=== PATIENT | male | born 1970 | race Caucasian/White ===

== ENCOUNTER 2017-12-30 09:46 | Emergency (ER) | payer MEDICARE ==
[~2017-12-30] VITALS: Ht 190.5 cm; Wt 109.8 kg
[~2017-12-30 09:46] MED LIST: ADVAIR INH; ADVAIR PO; ALBU.083IS IH; ALBU90OI INH; ALBU90OI6 INH; ALPR1 PO; AMIO200 PO; AMIT10 PO; AMOCLA875 PO; AMOX875 PO; ANORO ELLIPTA1 EACH INH; ASPI325 PO; ASPI81CH PO; ASPI81EC PO; ATEN25 PO; Advair Hfa 230-12 GM; Amiodarone HCl200 MG PO; Amoxicillin500 MG PO; Ativan1 MG PO; BISA5EC PO; CARV25 PO; CIPR500 PO; CITA20 PO; CLON.1 PO; CODGUAEL PO; COMBIVENT INH; COMBIVENT RESPIM4 GM; CYCL10 PO; Carvedilol25 MG PO; Catapres0.1 MG PO; Celexa40 MG PO; DIAZ10 PO; DIAZ5 PO; DOCU100 PO; DOXY100 PO; Desyrel150 MG PO; ENTRESTO 24 MG1 EACH PO; FLUSAL1005 IH; FLUSAL2505 INH; FURO20 PO; HYDACE5 PO; HYDACE5325 PO; HYDCHL12.5 PO; HYDMOR2 PO; HYDR-86; HYDR1TAB94; HYDR1TAB94 PO; IBUP600 PO; LEVFLO500 PO; LISI20 PO; LORA1 PO; LORTAB 5-325 M1 EACH PO; METO50 PO; METO50ER PO; METR500 PO; Norco 5-325 Ta1 EACH PO; OMEP20ER PO; OXYACE5T PO; Omeprazole20 M1 PO; PRED20 PO; Percocet 5-3251 EACH PO; Prilosec Otc20 MG PO; RANI150 PO; ROPI2 PO; RXHYDACE PO; SENN187 PO; SUMA25 PO; TIOT18 INH; TIOT18 PO; TRAZ150T57 PO; TRAZ50 PO; Trazodone HCl300 MG; VITAMIN B12 PO; VITAMIN B122500 MC1 PO; WARF2.5 PO; WARF5 PO; XARELTO20 MG PO
[2017-12-30 10:29] LABS: BASOPHILS ABSOLUTE AUTO 0.04 K/mm3 (0.00-0.23); BASOPHILS PERCENT AUTO 1 % (0-2); EOSINOPHILS ABSOLUTE AUTO 0.05 K/mm3 (0.00-0.68); EOSINOPHILS PERCENT AUTO 1 % (0-6); Hematocrit 45.8 % (37.0-53.0); Hemoglobin 15.3 g/dL (13.5-17.5); IMMATURE GRAN ABSOLUTE AUTO 0.02 K/mm3 (0.00-0.10); IMMATURE GRAN PERCENT AUTO 0 % (0-1); LYMPHOCYTES ABSOLUTE AUTO 1.16 K/mm3 (0.84-5.20); LYMPHOCYTES PERCENT AUTO 18 % (21-46); MONOCYTES PERCENT AUTO 14 % (4-13); Mean Corpuscular HGB 32.2 pg (26.0-34.0); Mean Corpuscular HGB Conc 33.4 g/dL (31.5-36.5); Mean Corpuscular Volume 96 fL (80-100); Mean Platelet Volume 10.2 fL (9.1-12.4); NEUTROPHILS ABSOLUTE AUTO 4.35 K/mm3 (1.96-9.15); NEUTROPHILS PERCENT AUTO 67 % (41-73); Platelet Count 260 K/mm3 (150-400); RDW Coefficient Variation 15.4 % (11.7-14.2); RDW Standard Deviation 55.2 fL (35.1-46.3); Red Blood Cell Count 4.75 M/mm3 (4.30-5.90); White Blood Cell Count 6.52 K/mm3 (4.00-11.30)
[2017-12-30 10:32] LABS: Base Excess Venous 3.8 mmol/L; Bicarbonate Venous 26.5 mmol/L (24.0-30.0); PCO2 Venous 41.4 mmHg (38-42); PO2 Venous 29.8 mmHg (38-42); pH Blood Venous 7.44 (7.34-7.37)
[2017-12-30 10:42] LABS: International Normalized Ratio 1.29; Prothrombin Time Results 13.5 Sec (9.7-11.5)
[2017-12-30 10:53] LABS: Alanine Aminotransfer (ALT/SGP 123 U/L (12-78); Albumin, Blood 3.6 g/dL (3.4-5.0); Albumin/Globulin Ratio 0.8 (0.8-1.8); Alk Phos 96 U/L (50-136); Anion Gap 8 mmol/L (6-16); Aspartate Aminotrans (AST/SGOT 61 U/L (12-37); Bilirubin, Total 1.2 mg/dL (0.1-1.0); Blood Urea Nitrogen 48 mg/dL (8-24); Bun/Creatinine Ratio 23.6 (12.0-20.0); CO2, Blood 28 mmol/L (21-32); Calcium, Blood 8.9 mg/dL (8.5-10.1); Chloride, Blood 96 mmol/L (98-108); Creatinine, Blood 2.03 mg/dL (0.60-1.20); Globulin, Blood 4.8 g/dL (2.2-4.0); Glomerular Filtration Rate 37 (60-); Glucose, Blood 111 mg/dL (70-99); Magnesium, Blood 2.2 mg/dL (1.6-2.4); Potassium, Blood 4.2 mmol/L (3.5-5.5); Sodium, Blood 132 mmol/L (136-145); Total Protein, Blood 8.4 g/dL (6.4-8.2); Troponin I <0.015 ng/mL (0.000-0.040)
[2018-06-17] MEDS ORDERED: QUET100 PO (03:37)
[2018-06-17] MEDS ORDERED: CLON1 PO (10:09)
[2018-09-28] MEDS ORDERED: CARV25 PO (23:30)
[2018-09-28] MEDS ORDERED: Ranitidine HCl150 M1 PO (23:30)
[2018-09-28] MEDS ORDERED: ROPI2 PO (23:30)
[2018-09-28] MEDS ORDERED: ENTRESTO 24 MG1 EACH PO (23:31)
[2018-09-28] MEDS ORDERED: Citalopram HBr40 MG PO (23:31)
[2018-09-28] MEDS ORDERED: Bentyl20 MG (23:31)
[2018-09-28] MEDS ORDERED: XARELTO20 MG PO (23:32)
[2018-09-28] MEDS ORDERED: GABA300 PO (23:32)
[2018-09-28] MEDS ORDERED: NALTREXONE PO (23:32)
[2018-09-28] MEDS ORDERED: QUET25 PO (23:33)
[2018-09-28] MEDS ORDERED: FURO20 PO (23:33)
[2018-09-28] MEDS ORDERED: TRAZ150T57 PO (23:33)
[2018-09-28] MEDS ORDERED: CLON1 PO (23:33)
[2018-09-29] MEDS ORDERED: PROM12.5S PR (00:22)
== END 2017-12-30 14:18 | disposition left against medical advice (07) ==
LOC: ER 09:46 → MEDS 09:47 → ER 09:47 → MEDS 09:47 → ER 14:18
PROVIDERS: Emergency Medicine
DX: R55 Syncope and collapse (principal); N17.9 Acute kidney failure, unspecified; E86.0 Dehydration; K92.1 Melena; Z88.5 Allergy status to narcotic agent; Z88.8 Allergy status to other drugs, medicaments and biological substances; Z79.899 Other long term (current) drug therapy; Z79.891 Long term (current) use of opiate analgesic; J44.9 Chronic obstructive pulmonary disease, unspecified; F41.9 Anxiety disorder, unspecified; I48.91 Unspecified atrial fibrillation; I50.9 Heart failure, unspecified; Z87.891 Personal history of nicotine dependence
CPT/HCPCS: 36415; 80053; 82272; 82803; 83735; 84443; 84484; 85025; 85610; 93005; 93010; 96360; 96361; 99284; J7030

== ENCOUNTER → 2018-07-09 | Outpatient (CLI) | payer MEDICARE ==
[~2018-07-09] MED LIST changes: +CLON1 PO; +QUET100 PO
[2018-07-09 14:38] LABS: Adenovirus F 40/41 Not Detected (NOT DETECT); Astrovirus Not Detected (NOT DETECT); Campylobacter Sp Not Detected (NOT DETECT); Cryptosporidium Not Detected (NOT DETECT); Cyclospora Cayetanensis Not Detected (NOT DETECT); E. Coli O157 Not Detected (NOT DETECT); Entamoeba Histolytica Not Detected (NOT DETECT); Enteroaggregative E. coli-EAEC Not Detected (NOT DETECT); Enteropathogenic E. coli-EPEC Not Detected (NOT DETECT); Enterotoxigenic E. coli-ETEC Not Detected (NOT DETECT); Giardia Lamblia Not Detected (NOT DETECT); Norovirus GI/GII Not Detected (NOT DETECT); Plesiomonas Shigelloides Not Detected (NOT DETECT); Rotavirus A Not Detected (NOT DETECT); Salmonella Sp Not Detected (NOT DETECT); Sapovirus Not Detected (NOT DETECT); Shiga Toxin-prod E. coli-STEC Not Detected (NOT DETECT); Shigella/Enteroin E. coli-EIEC Not Detected (NOT DETECT); Vibrio Cholerae Not Detected (NOT DETECT); Vibrio Sp Not Detected (NOT DETECT); Yersinia Enterocolitica Not Detected (NOT DETECT)
== END ==
LOC: LAB SHORT 14:37 → LAB SRC 14:37
PROVIDERS: Internal Medicine Gastroenterology
DX: K92.1 Melena (principal); R19.7 Diarrhea, unspecified
CPT/HCPCS: 87507

== ENCOUNTER 2018-12-24 16:06 | Emergency (ER) | payer MEDICARE ==
[~2018-12-24] VITALS: Ht 193 cm; Wt 117.9 kg
[~2018-12-24 16:06] MED LIST changes: +Bentyl20 MG; +Citalopram HBr40 MG PO; +GABA300 PO; +NALTREXONE PO; +PROM12.5S PR; +QUET25 PO; +Ranitidine HCl150 M1 PO
[2018-12-24 16:59] LABS: BASOPHILS ABSOLUTE AUTO 0.06 K/mm3 (0.00-0.23); BASOPHILS PERCENT AUTO 0 % (0-2); EOSINOPHILS ABSOLUTE AUTO 0.08 K/mm3 (0.00-0.68); EOSINOPHILS PERCENT AUTO 1 % (0-6); Hematocrit 43.9 % (37.0-53.0); Hemoglobin 14.2 g/dL (13.5-17.5); IMMATURE GRAN ABSOLUTE AUTO 0.04 K/mm3 (0.00-0.10); IMMATURE GRAN PERCENT AUTO 0 % (0-1); LYMPHOCYTES ABSOLUTE AUTO 1.41 K/mm3 (0.84-5.20); LYMPHOCYTES PERCENT AUTO 10 % (21-46); MONOCYTES ABSOLUTE AUTO 1.19 K/mm3 (0.16-1.47); MONOCYTES PERCENT AUTO 9 % (4-13); Mean Corpuscular HGB 27.6 pg (26.0-34.0); Mean Corpuscular HGB Conc 32.3 g/dL (31.5-36.5); Mean Corpuscular Volume 85 fL (80-100); Mean Platelet Volume 10.2 fL (9.1-12.4); NEUTROPHILS ABSOLUTE AUTO 10.87 K/mm3 (1.96-9.15); NEUTROPHILS PERCENT AUTO 80 % (41-73); Platelet Count 296 K/mm3 (150-400); RDW Standard Deviation 50.8 fL (35.1-46.3); Red Blood Cell Count 5.14 M/mm3 (4.30-5.90); White Blood Cell Count 13.65 K/mm3 (4.00-11.30)
[2018-12-24 17:20] LABS: Alanine Aminotransfer (ALT/SGP 24 U/L (12-78); Albumin, Blood 4.1 g/dL (3.4-5.0); Albumin/Globulin Ratio 1.1 (0.8-1.8); Alk Phos 85 U/L (50-136); Anion Gap 11 mmol/L (6-16); Aspartate Aminotrans (AST/SGOT 20 U/L (12-37); Blood Urea Nitrogen 12 mg/dL (8-24); Bun/Creatinine Ratio 11.9 (12.0-20.0); CO2, Blood 22 mmol/L (21-32); Calcium, Blood 9.1 mg/dL (8.5-10.1); Chloride, Blood 104 mmol/L (98-108); Creatinine, Blood 1.01 mg/dL (0.60-1.20); Globulin, Blood 3.9 g/dL (2.2-4.0); Glomerular Filtration Rate >60 (60-); Glucose, Blood 103 mg/dL (70-99); Sodium, Blood 137 mmol/L (136-145)
[2018-12-24 18:02] LABS: Source, Urine Voided
[2018-12-24 18:05] LABS: Appearance, Urine Clear (Clear); Bilirubin, Urine Neg (Neg); Blood, Urine 1+ (Neg); Color, Urine Yellow (P-Yellow); Glucose Qualitative, Urine Neg (Neg); Ketones, Urine 3+ (Neg); Leukocyte Esterase, Urine Neg (Neg); Nitrite, Urine Neg (Neg); Protein, Urine 2+ (Neg); Specific Gravity, Urine 1.015 (1.003-1.022); Urobilinogen, Urine NORM (Normal)
[2018-12-24] MEDS ORDERED: PROM25 PO (18:13)
[2018-12-24] MEDS ORDERED: CITRATE OF MAG296 ML PO (18:13)
[2018-12-24 18:21] LABS: Bacteria Not Seen /hpf; Red Blood Cells, Urine 0-2 /hpf (0-2); Squamous Epithelial Cells Rare /hpf (Few); White Blood Cells, Urine 0-2 /hpf (0-5)
[2018-12-24] MEDS ORDERED: HALO5 PO (18:56)
[2018-12-24] MEDS ORDERED: Capzasin-Hp42.5 GM TOP (18:56)
== END 2018-12-24 19:11 | disposition home or self-care (01) ==
LOC: ER 16:06
PROVIDERS: Emergency Medicine
DX: K59.00 Constipation, unspecified (principal); R11.2 Nausea with vomiting, unspecified; J44.9 Chronic obstructive pulmonary disease, unspecified; F41.9 Anxiety disorder, unspecified; I50.9 Heart failure, unspecified; F17.200 Nicotine dependence, unspecified, uncomplicated; Z88.8 Allergy status to other drugs, medicaments and biological substances; Z88.5 Allergy status to narcotic agent; Z79.899 Other long term (current) drug therapy
CPT/HCPCS: 36415; 74176; 80053; 81001; 83690; 85025; 96361; 96374; 96375; 99284-25; J1630; J2060; J2405; J7030

== ENCOUNTER 2019-01-25 17:19 | Emergency (ER) | payer MEDICARE ==
[~2019-01-25] VITALS: Ht 193 cm; Wt 108.9 kg
[~2019-01-25 17:19] MED LIST changes: +CITRATE OF MAG296 ML PO; +Capzasin-Hp42.5 GM TOP; +HALO5 PO; +PROM25 PO
[2019-01-25 18:16] LABS: BASOPHILS ABSOLUTE AUTO 0.04 K/mm3 (0.00-0.23); BASOPHILS PERCENT AUTO 0 % (0-2); EOSINOPHILS ABSOLUTE AUTO 0.07 K/mm3 (0.00-0.68); EOSINOPHILS PERCENT AUTO 1 % (0-6); Hematocrit 46.4 % (37.0-53.0); Hemoglobin 14.9 g/dL (13.5-17.5); IMMATURE GRAN ABSOLUTE AUTO 0.04 K/mm3 (0.00-0.10); IMMATURE GRAN PERCENT AUTO 0 % (0-1); LYMPHOCYTES ABSOLUTE AUTO 1.24 K/mm3 (0.84-5.20); LYMPHOCYTES PERCENT AUTO 13 % (21-46); MONOCYTES ABSOLUTE AUTO 0.88 K/mm3 (0.16-1.47); MONOCYTES PERCENT AUTO 9 % (4-13); Mean Corpuscular HGB 27.7 pg (26.0-34.0); Mean Corpuscular HGB Conc 32.1 g/dL (31.5-36.5); Mean Corpuscular Volume 86 fL (80-100); NEUTROPHILS ABSOLUTE AUTO 7.51 K/mm3 (1.96-9.15); NEUTROPHILS PERCENT AUTO 77 % (41-73); Platelet Count 316 K/mm3 (150-400); RDW Coefficient Variation 18.7 % (11.7-14.2); RDW Standard Deviation 56.8 fL (35.1-46.3); Red Blood Cell Count 5.37 M/mm3 (4.30-5.90); White Blood Cell Count 9.78 K/mm3 (4.00-11.30)
[2019-01-25 18:44] LABS: Alanine Aminotransfer (ALT/SGP 20 U/L (12-78); Albumin, Blood 4.2 g/dL (3.4-5.0); Alk Phos 99 U/L (50-136); Anion Gap 8 mmol/L (6-16); Aspartate Aminotrans (AST/SGOT 12 U/L (12-37); Bilirubin, Total 0.8 mg/dL (0.1-1.0); Blood Urea Nitrogen 11 mg/dL (8-24); Bun/Creatinine Ratio 11.9 (12.0-20.0); CO2, Blood 28 mmol/L (21-32); Calcium, Blood 9.5 mg/dL (8.5-10.1); Chloride, Blood 103 mmol/L (98-108); Creatinine, Blood 0.93 mg/dL (0.60-1.20); Globulin, Blood 4.2 g/dL (2.2-4.0); Glomerular Filtration Rate >60 (60-); Glucose, Blood 119 mg/dL (70-99); Potassium, Blood 3.9 mmol/L (3.5-5.5); Sodium, Blood 139 mmol/L (136-145); Total Protein, Blood 8.4 g/dL (6.4-8.2); Troponin I <0.015 ng/mL (0.000-0.040)
== END 2019-01-25 19:20 | disposition left against medical advice (07) ==
LOC: ER 17:19
PROVIDERS: Physician Assistant
DX: R11.2 Nausea with vomiting, unspecified (principal); R00.2 Palpitations; R06.02 Shortness of breath; R07.9 Chest pain, unspecified
CPT/HCPCS: 36415; 71046; 80053; 83880; 84443; 84484; 85025; 93005; 93010; 96374; 99284-25; J2405

== ENCOUNTER 2019-02-20 10:33 | Inpatient (IN) | payer MEDICARE ==
[~2019-02-20] VITALS: Ht 185.4 cm; Wt 104.7 kg
[2019-02-20 11:00] LABS: BASOPHILS ABSOLUTE AUTO 0.06 K/mm3 (0.00-0.23); BASOPHILS PERCENT AUTO 1 % (0-2); EOSINOPHILS ABSOLUTE AUTO 0.24 K/mm3 (0.00-0.68); EOSINOPHILS PERCENT AUTO 2 % (0-6); Hematocrit 46.7 % (37.0-53.0); Hemoglobin 14.6 g/dL (13.5-17.5); IMMATURE GRAN ABSOLUTE AUTO 0.04 K/mm3 (0.00-0.10); IMMATURE GRAN PERCENT AUTO 0 % (0-1); LYMPHOCYTES ABSOLUTE AUTO 2.53 K/mm3 (0.84-5.20); LYMPHOCYTES PERCENT AUTO 24 % (21-46); MONOCYTES ABSOLUTE AUTO 1.24 K/mm3 (0.16-1.47); MONOCYTES PERCENT AUTO 12 % (4-13); Mean Corpuscular HGB 27.9 pg (26.0-34.0); Mean Corpuscular HGB Conc 31.3 g/dL (31.5-36.5); Mean Corpuscular Volume 89 fL (80-100); Mean Platelet Volume 11.2 fL (9.1-12.4); NEUTROPHILS ABSOLUTE AUTO 6.59 K/mm3 (1.96-9.15); NEUTROPHILS PERCENT AUTO 62 % (41-73); Platelet Count 305 K/mm3 (150-400); RDW Coefficient Variation 18.7 % (11.7-14.2); RDW Standard Deviation 59.5 fL (35.1-46.3); Red Blood Cell Count 5.24 M/mm3 (4.30-5.90)
[2019-02-20 11:14] LABS: Alanine Aminotransfer (ALT/SGP 19 U/L (12-78); Albumin, Blood 3.9 g/dL (3.4-5.0); Alk Phos 77 U/L (50-136); Anion Gap 6 mmol/L (6-16); Aspartate Aminotrans (AST/SGOT 22 U/L (12-37); Bilirubin, Total 0.8 mg/dL (0.1-1.0); Blood Urea Nitrogen 13 mg/dL (8-24); Bun/Creatinine Ratio 11.7 (12.0-20.0); CO2, Blood 27 mmol/L (21-32); Chloride, Blood 108 mmol/L (98-108); Creatinine, Blood 1.11 mg/dL (0.60-1.20); Glomerular Filtration Rate >60 (60-); Glucose, Blood 115 mg/dL (70-99); Sodium, Blood 141 mmol/L (136-145); Total Protein, Blood 7.9 g/dL (6.4-8.2)
[2019-02-20] MEDS ORDERED: CITA20 PO (16:13)
[2019-02-20] MEDS ORDERED: ABAT250V (16:13)
[2019-02-20] MEDS ORDERED: COMBIVENT RESPIM4 GM INH (16:15)
--- NOTE | 2019-02-20 16:30 | NUR ---
pt arrived to pcu via gurney from ed, report was given, pt able to stand and transfer himself to bed. a/ox3, pleasant and cooperative with care, follows commands well, states it really hurts to vomit but chest is not hurting at this time. was reluctant to have prabhjot miranda hooked back up because he percieved that it was causing his chest pain, explained to him that it is very unlikely, and since he is pain free at this time to start it back up and if his chest pain starts shortly after will keep it off, hooked him up with no pain, lungs are clear in upper red, course in bases, resp even and unlabored, no cough noted, is currently on r/a, resp even and unlabored, hrirr, tele in place running afib in 120's, iv to left ac, site is clear and patent, new iv placed to left fa 20g, with good blood return, flushes well, no edema noted, ppp+2, cap refill <3sec, vs stable, afebrile, btx4, abd flat soft nontender, voids without diff, skin c/w/d, haile, david, oriented to room layout and call system. call light in reach.
--- NOTE | 2019-02-20 19:22 | NUR ---
pt vomiting. po phenergan given when he was finished, states it hurts to vomit. is laying on his side resting now. call light in reach.
--- NOTE | 2019-02-20 22:07 | NUR ---
ASSUMED CARE OF PATIENT AT APPROXIMATELY 1910 FROM FREDERICK Talavera RN. PATIENT COMPLAINS OF PAIN; REPORTS NEEDS IV PAIN MEDICATION. PATIENT ANXIOUS; MOVING FROM LAYING DOWN TO SITTING UP IN BED; REFUSING TO TAKE SCHEDULED PO MEDICATIONS; STATING NEEDS PAIN MEDICATION FIRST; NO IV PAIN MEDICATION ORDERED. PATIENT REPORTS PAIN IS 5-6/10; K-PAD IN [place]; PATIENT REPORTS DIFFERENT FROM HIS CHRONIC ABDOMINAL PAIN BECAUSE HE DOESNT NORMALLY VOMIT; PATIENT HAS NOT VOMITED SINCE SHIFT CHANGE. PATIENT STATED "I TOLD THEM I NEED VERSED NOT FENTANYL" BUT LATER REPORTS FENTANYL HELPS PAIN. CALLED PLACED TO EVELYN MOSHER; ORDERS RECIEVED FOR ONE TIME DOSE OF FENTANYL; GOOD RESULTS; PATIENT HAD SMILE ON HIS FACE. EVELYN MOSHER ALSO NOTIFIED OF ELEVATED BLOOD PRESSURE; PATIENT REPORTS HIGH D/T PAIN; PATIENT NOT STAYING STILL FOR BLOOD PRESSURE; SITTING UP IN BED AND LAYING BACK DOWN; PUTTING PRESSURE ON HIS ARM WHILE BLOOD PRESSURE CUFF INFLATES AND DEFLATED. AFIB ON TELE W/ AVERAGE RATE OF 105; CARDIZEM INFUSING AT 10ML/HR; LR INFUSING INTO 2ND PIV PER ORDER. PATIENT REPORTS HE DOESNT HAVE NUMBNESS AND TINGLING "RIGHT NOW". PATIENT DENIES NAUSEA; DRINKING APPLE JUICE AND TOLERATING WELL; TOOK PILLS WHOLE. OXYGEN SATURATION ABOVE 90% ON ROOM AIR. PATIENT REPORTS HE HAS NOT SLEPT IN FOUR DAYS. PATIENT CURRENTLY RESTING IN BED; CALL LIGHT IN REACH; BED IN LOWEST POSISTION; BED ALARM ON; WILL CONTINUE TO MONITOR AND ASSESS UNTIL END OF SHIFT.
--- NOTE | 2019-02-20 23:32 | NUR ---
CARDIZEM STOPPED; AFIB ON TELE; HEART RATE 85 AND CONTINUE TO TREND DOWN; SBP IN THE 90'S.
[2019-02-21 03:56] LABS: BASOPHILS ABSOLUTE AUTO 0.02 K/mm3 (0.00-0.23); BASOPHILS PERCENT AUTO 0 % (0-2); EOSINOPHILS ABSOLUTE AUTO 0.08 K/mm3 (0.00-0.68); EOSINOPHILS PERCENT AUTO 1 % (0-6); Hematocrit 43.2 % (37.0-53.0); Hemoglobin 13.7 g/dL (13.5-17.5); IMMATURE GRAN ABSOLUTE AUTO 0.01 K/mm3 (0.00-0.10); IMMATURE GRAN PERCENT AUTO 0 % (0-1); LYMPHOCYTES ABSOLUTE AUTO 2.17 K/mm3 (0.84-5.20); LYMPHOCYTES PERCENT AUTO 33 % (21-46); MONOCYTES ABSOLUTE AUTO 0.97 K/mm3 (0.16-1.47); MONOCYTES PERCENT AUTO 15 % (4-13); Mean Corpuscular HGB 28.3 pg (26.0-34.0); Mean Corpuscular HGB Conc 31.7 g/dL (31.5-36.5); Mean Corpuscular Volume 89 fL (80-100); Mean Platelet Volume 10.5 fL (9.1-12.4); NEUTROPHILS ABSOLUTE AUTO 3.37 K/mm3 (1.96-9.15); NEUTROPHILS PERCENT AUTO 51 % (41-73); Platelet Count 247 K/mm3 (150-400); RDW Coefficient Variation 18.5 % (11.7-14.2); RDW Standard Deviation 59.3 fL (35.1-46.3); Red Blood Cell Count 4.84 M/mm3 (4.30-5.90); White Blood Cell Count 6.62 K/mm3 (4.00-11.30)
[2019-02-21 04:27] LABS: Alanine Aminotransfer (ALT/SGP 20 U/L (12-78); Albumin, Blood 3.5 g/dL (3.4-5.0); Alk Phos 66 U/L (50-136); Anion Gap 6 mmol/L (6-16); Aspartate Aminotrans (AST/SGOT 14 U/L (12-37); Bilirubin, Total 0.8 mg/dL (0.1-1.0); Blood Urea Nitrogen 13 mg/dL (8-24); Bun/Creatinine Ratio 12.9 (12.0-20.0); CO2, Blood 29 mmol/L (21-32); Calcium, Blood 8.6 mg/dL (8.5-10.1); Chloride, Blood 108 mmol/L (98-108); Creatinine, Blood 1.01 mg/dL (0.60-1.20); Globulin, Blood 3.6 g/dL (2.2-4.0); Glomerular Filtration Rate >60 (60-); Glucose, Blood 87 mg/dL (70-99); Magnesium, Blood 2.6 mg/dL (1.6-2.4); Potassium, Blood 3.8 mmol/L (3.5-5.5); Sodium, Blood 143 mmol/L (136-145); Total Protein, Blood 7.1 g/dL (6.4-8.2)
--- NOTE | 2019-02-21 07:11 | NUR ---
PATIENT SLEPT ABOUT SEVEN HOURS LAST NIGHT. VSS. NO OTHER ACUTE CHANGES TO REPORT.
--- NOTE | 2019-02-21 11:23 | NUR ---
BEGINNING OF SHIFT Assumed care at 0700. Report recieved from Cheyenne CARPIO. Pt on room air. Independent in room. During shift assessment, pt states his abdominal pain has resolved. He did not have reoccurence of pain after eating a clear liquid breakfast. Pt denies nausea and vomiting as well. Pt states desire to go home. Call placed to Dr Wyatt regarding pt's improved heart rate and discontinuation of cardizem during previous shift. No new orders given. Dr Wyatt in to see pt soon afterwards. Plans for potential discharge today if pt's heart rate remains controlled.
[2019-02-21] MEDS ORDERED: OMEPRAZOLE MAGN20 MG PO (13:55)
[2019-02-21] MEDS ORDERED: ONDA4ODT PO (13:56)
--- NOTE | 2019-02-21 14:16 | NUR ---
DISCHARGE Pt discharged from unit at 1416. Pt escorted to vehicle via wheelchair with one visitor and Love MALIK. Medications faxed to pt's pharmacy, which is not open on Sundays. Staff recommended pt picks up medications from a pharmacy that is open today; pt declined.
== END 2019-02-21 14:12 | disposition home or self-care (01) | DRG 392 ==
LOC: ER 10:33 → PCU 14:10
PROVIDERS: Emergency Medicine; ADMIT Internal Medicine
DX: K52.9 Noninfective gastroenteritis and colitis, unspecified (principal); I42.6 Alcoholic cardiomyopathy; I48.92 Unspecified atrial flutter; I48.2 Chronic atrial fibrillation; J43.9 Emphysema, unspecified; F41.9 Anxiety disorder, unspecified; I10 Essential (primary) hypertension; K21.9 Gastro-esophageal reflux disease without esophagitis; G25.81 Restless legs syndrome; E86.0 Dehydration; I16.0 Hypertensive urgency; G40.909 Epilepsy, unspecified, not intractable, without status epilepticus; G47.30 Sleep apnea, unspecified
CPT/HCPCS: 36415; 71045; 80053; 83690; 83735; 84484; 85025; 93005; 93010; 94762; 96365; 96375; 96376; 99285-25; J2405; J2550; J3010; J3475; J7120

== ENCOUNTER 2019-05-12 06:21 | Emergency (ER) | payer MEDICARE, OTHER ==
[~2019-05-12] VITALS: Ht 190.5 cm; Wt 120.2 kg
[~2019-05-12 06:21] MED LIST changes: +ABAT250V; +COMBIVENT RESPIM4 GM INH; +OMEPRAZOLE MAGN20 MG PO; +ONDA4ODT PO
[2019-05-12] MEDS ORDERED: Silvadene20 GM TOP (06:47)
== END 2019-05-12 07:05 | disposition home or self-care (01) ==
LOC: ER 06:21
DX: T24.012A Burn of unspecified degree of left thigh, initial encounter (principal); T22.012A Burn of unspecified degree of left forearm, initial encounter; T31.0 Burns involving less than 10% of body surface; X19.XXXA Contact with other heat and hot substances, initial encounter; Z88.5 Allergy status to narcotic agent; Z88.8 Allergy status to other drugs, medicaments and biological substances; Z79.899 Other long term (current) drug therapy; F41.9 Anxiety disorder, unspecified; J44.9 Chronic obstructive pulmonary disease, unspecified; I48.91 Unspecified atrial fibrillation; I50.9 Heart failure, unspecified; Z87.891 Personal history of nicotine dependence
CPT/HCPCS: 16025; 99283-25

== ENCOUNTER 2019-05-23 17:59 | Emergency (ER) | payer MEDICARE, OTHER ==
[~2019-05-23] VITALS: Ht 190.5 cm; Wt 108.9 kg
[~2019-05-23 17:59] MED LIST changes: +Silvadene20 GM TOP
[2019-05-23 20:18] LABS: BASOPHILS ABSOLUTE AUTO 0.05 K/mm3 (0.00-0.23); BASOPHILS PERCENT AUTO 1 % (0-2); EOSINOPHILS ABSOLUTE AUTO 0.23 K/mm3 (0.00-0.68); EOSINOPHILS PERCENT AUTO 4 % (0-6); Hematocrit 38.8 % (37.0-53.0); Hemoglobin 12.2 g/dL (13.5-17.5); IMMATURE GRAN ABSOLUTE AUTO 0.01 K/mm3 (0.00-0.10); IMMATURE GRAN PERCENT AUTO 0 % (0-1); LYMPHOCYTES ABSOLUTE AUTO 1.65 K/mm3 (0.84-5.20); LYMPHOCYTES PERCENT AUTO 26 % (21-46); MONOCYTES ABSOLUTE AUTO 0.61 K/mm3 (0.16-1.47); MONOCYTES PERCENT AUTO 10 % (4-13); Mean Corpuscular HGB 29.8 pg (26.0-34.0); Mean Corpuscular HGB Conc 31.4 g/dL (31.5-36.5); Mean Corpuscular Volume 95 fL (80-100); Mean Platelet Volume 10.9 fL (9.1-12.4); NEUTROPHILS ABSOLUTE AUTO 3.75 K/mm3 (1.96-9.15); NEUTROPHILS PERCENT AUTO 59 % (41-73); Platelet Count 243 K/mm3 (150-400); RDW Coefficient Variation 15.9 % (11.7-14.2); RDW Standard Deviation 55.1 fL (35.1-46.3)
[2019-05-23] MEDS ORDERED: Percocet 5-3251 EACH PO (20:32)
[2019-05-23 20:39] LABS: Alanine Aminotransfer (ALT/SGP 17 U/L (12-78); Albumin, Blood 3.4 g/dL (3.4-5.0); Albumin/Globulin Ratio 1.1 (0.8-1.8); Alk Phos 89 U/L (50-136); Anion Gap 5 mmol/L (6-16); Aspartate Aminotrans (AST/SGOT 20 U/L (12-37); Bilirubin, Total 0.5 mg/dL (0.1-1.0); Blood Urea Nitrogen 20 mg/dL (8-24); Bun/Creatinine Ratio 19.4 (12.0-20.0); CO2, Blood 28 mmol/L (21-32); Chloride, Blood 110 mmol/L (98-108); Creatinine, Blood 1.03 mg/dL (0.60-1.20); Glomerular Filtration Rate >60 (60-); Glucose, Blood 94 mg/dL (70-99); Potassium, Blood 3.6 mmol/L (3.5-5.5); Sodium, Blood 143 mmol/L (136-145); Total Protein, Blood 6.4 g/dL (6.4-8.2)
== END 2019-05-23 20:58 | disposition home or self-care (01) ==
LOC: ER 17:59
PROVIDERS: Physician Assistant
DX: T21.06XA Burn of unspecified degree of male genital region, initial encounter (principal); T24.092A Burn of unspecified degree of multiple sites of left lower limb, except ankle and foot, initial encounter; T24.091A Burn of unspecified degree of multiple sites of right lower limb, except ankle and foot, initial encounter; T26.42XA Burn of left eye and adnexa, part unspecified, initial encounter; T26.41XA Burn of right eye and adnexa, part unspecified, initial encounter; T31.0 Burns involving less than 10% of body surface; X14.1XXA Other contact with hot air and other hot gases, initial encounter; Z88.8 Allergy status to other drugs, medicaments and biological substances; Z88.5 Allergy status to narcotic agent; Z79.899 Other long term (current) drug therapy; J44.9 Chronic obstructive pulmonary disease, unspecified; F41.9 Anxiety disorder, unspecified; I48.91 Unspecified atrial fibrillation; I50.9 Heart failure, unspecified; Z87.891 Personal history of nicotine dependence
CPT/HCPCS: 16025; 80053; 85025; 96374-59; 99283-25; A9270; J1170

== ENCOUNTER 2019-06-02 13:15 | Emergency (ER) | payer MEDICARE, OTHER ==
[~2019-06-02] VITALS: Ht 190.5 cm; Wt 104.3 kg
[2019-06-02] MEDS ORDERED: Percocet 5-3251 EACH PO (15:09)
[2019-06-02] MEDS ORDERED: Mupirocin22 GM TOP (15:10)
== END 2019-06-02 15:54 | disposition home or self-care (01) ==
LOC: ER 13:15
DX: M79.651 Pain in right thigh (principal); M79.605 Pain in left leg; M79.602 Pain in left arm; R10.30 Lower abdominal pain, unspecified; Z88.8 Allergy status to other drugs, medicaments and biological substances; Z88.5 Allergy status to narcotic agent; Z79.899 Other long term (current) drug therapy; J44.9 Chronic obstructive pulmonary disease, unspecified; F41.9 Anxiety disorder, unspecified; I50.9 Heart failure, unspecified; Z87.891 Personal history of nicotine dependence
CPT/HCPCS: 99282; A9270-GY

== ENCOUNTER 2019-07-14 07:39 | Observation (INO) | payer MEDICARE, OTHER ==
[~2019-07-14] VITALS: Ht 193 cm; Wt 97.0 kg
[~2019-07-14 07:39] MED LIST changes: +Mupirocin22 GM TOP
[2019-07-14 08:03] LABS: BASOPHILS ABSOLUTE AUTO 0.02 K/mm3 (0.00-0.23); BASOPHILS PERCENT AUTO 0 % (0-2); EOSINOPHILS PERCENT AUTO 0 % (0-6); Hematocrit 49.3 % (37.0-53.0); Hemoglobin 16.8 g/dL (13.5-17.5); IMMATURE GRAN ABSOLUTE AUTO 0.02 K/mm3 (0.00-0.10); IMMATURE GRAN PERCENT AUTO 0 % (0-1); LYMPHOCYTES ABSOLUTE AUTO 1.22 K/mm3 (0.84-5.20); LYMPHOCYTES PERCENT AUTO 14 % (21-46); MONOCYTES ABSOLUTE AUTO 0.43 K/mm3 (0.16-1.47); MONOCYTES PERCENT AUTO 5 % (4-13); Mean Corpuscular HGB 29.9 pg (26.0-34.0); Mean Corpuscular HGB Conc 34.1 g/dL (31.5-36.5); Mean Corpuscular Volume 88 fL (80-100); Mean Platelet Volume 10.7 fL (9.1-12.4); NEUTROPHILS PERCENT AUTO 81 % (41-73); Platelet Count 276 K/mm3 (150-400); RDW Standard Deviation 51.7 fL (35.1-46.3); Red Blood Cell Count 5.62 M/mm3 (4.30-5.90); White Blood Cell Count 8.99 K/mm3 (4.00-11.30)
[2019-07-14 08:23] LABS: Alanine Aminotransfer (ALT/SGP 19 U/L (12-78); Albumin, Blood 4.3 g/dL (3.4-5.0); Alk Phos 108 U/L (50-136); Anion Gap 11 mmol/L (6-16); Aspartate Aminotrans (AST/SGOT 13 U/L (12-37); Bilirubin, Total 1.3 mg/dL (0.1-1.0); Blood Urea Nitrogen 20 mg/dL (8-24); Bun/Creatinine Ratio 23.3 (12.0-20.0); CO2, Blood 24 mmol/L (21-32); Calcium, Blood 9.2 mg/dL (8.5-10.1); Chloride, Blood 102 mmol/L (98-108); Creatinine, Blood 0.86 mg/dL (0.60-1.20); Globulin, Blood 4.2 g/dL (2.2-4.0); Glomerular Filtration Rate >60 (60-); Glucose, Blood 135 mg/dL (70-99); Potassium, Blood 4.2 mmol/L (3.5-5.5); Sodium, Blood 137 mmol/L (136-145); Total Protein, Blood 8.5 g/dL (6.4-8.2); Troponin I <0.015 ng/mL (0.000-0.040)
[2019-07-14] MEDS ORDERED: TRAZ150T57 PO (11:51)
[2019-07-14] MEDS ORDERED: CARV25 PO (11:51)
[2019-07-14] MEDS ORDERED: QUETIAPINE FUMA50 MG PO (11:52)
[2019-07-14] MEDS ORDERED: METO50ER PO (11:53)
[2019-07-14] MEDS ORDERED: FUROSEMIDE20 MG PO (11:53)
[2019-07-14] MEDS ORDERED: Ropinirole HCl2 MG PO (11:54)
[2019-07-14] MEDS ORDERED: OMEP20ER PO (11:55)
[2019-07-14 12:08] LABS: U Amphetamine Screen Not Detected; U Barbituate Screen Not Detected; U Benzodiazapine Screen Not Detected; U Buprenorphine Screen Not Detected; U Cannabinoids Screen DETECTED; U Cocaine Screen Not Detected; U Methadone Screen Not Detected; U Methamphetamine Screen Not Detected; U Opiates Screen DETECTED; U Oxycodone Screen Not Detected; U Phencyclidine Screen Not Detected; U Propoxyphene Screen Not Detected
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
[2019-07-15 00:46] LABS: Hematocrit 46.2 % (37.0-53.0); Mean Corpuscular HGB Conc 32.5 g/dL (31.5-36.5); Mean Platelet Volume 10.3 fL (9.1-12.4); Platelet Count 215 K/mm3 (150-400); RDW Coefficient Variation 16.6 % (11.7-14.2); White Blood Cell Count 7.31 K/mm3 (4.00-11.30)
[2019-07-15 00:50] LABS: Mean Corpuscular Volume 92 fL (80-100)
[2019-07-15 01:05] LABS: Anion Gap 6 mmol/L (6-16); Blood Urea Nitrogen 20 mg/dL (8-24); Bun/Creatinine Ratio 22.7 (12.0-20.0); CO2, Blood 29 mmol/L (21-32); Calcium, Blood 8.5 mg/dL (8.5-10.1); Chloride, Blood 107 mmol/L (98-108); Creatinine, Blood 0.88 mg/dL (0.60-1.20); Glomerular Filtration Rate >60 (60-); Glucose, Blood 85 mg/dL (70-99); Potassium, Blood 3.9 mmol/L (3.5-5.5); Sodium, Blood 142 mmol/L (136-145)
--- NOTE | 2019-07-15 07:39 | NUR ---
PATIENT REFUSED BLOOD SUGAR, SAID THAT HE IS NOT DIABETIC
--- NOTE | 2019-07-15 07:53 | NUR ---
pt laying in bed awake a/ox3, pleasant and cooperative with care, follows commands well, denies pain or complaints, states he feels like he's back to his baseline and ready to go home, lungs are clear in upper red, a bit wheezing in bases, resp even and unlabored, no cough noted at this time, hrirr, tele in place running afib per monitor, see strip, no edema noted, ppp+2, cap refill <3sec, vs stable, afebrile, iv site is clear and patent, btx4, abd flat soft nontender, voids without diff, skin c/w/d, maew, david, call light in reach.
[2019-07-15] MEDS ORDERED: ENTRESTO 24 MG1 EACH PO (11:55)
--- NOTE | 2019-07-15 12:37 | NUR ---
pt has been discharged to home, went over instructions with him, he is anxious about stopping the metoprolol, asked him to check with Dr. Alfonso who is his Dr. if he has concerns. he verbalized understanding of instructions, iv removed intact. left with in attendence via wheelchair, he has all belongings.
== END 2019-07-15 12:35 | disposition home or self-care (01) ==
LOC: ER 07:39 → PCU 07:40 → ERHOLD 07:40 → PCU 07:41 → ER 09:41 → PCU 09:41 → ERHOLD 09:41 → PCU 11:40 → ERHOLD 12:00 → PCU 07-15 12:35
PROVIDERS: Emergency Medicine; ADMIT Internal Medicine
DX: R11.2 Nausea with vomiting, unspecified (principal); I48.91 Unspecified atrial fibrillation; I42.9 Cardiomyopathy, unspecified; I10 Essential (primary) hypertension; K21.9 Gastro-esophageal reflux disease without esophagitis; G40.909 Epilepsy, unspecified, not intractable, without status epilepticus; G25.81 Restless legs syndrome; G47.33 Obstructive sleep apnea (adult) (pediatric); F32.9 Major depressive disorder, single episode, unspecified; F41.9 Anxiety disorder, unspecified; F17.200 Nicotine dependence, unspecified, uncomplicated; Z88.5 Allergy status to narcotic agent; Z88.8 Allergy status to other drugs, medicaments and biological substances; Z79.899 Other long term (current) drug therapy; Z79.01 Long term (current) use of anticoagulants
CPT/HCPCS: 36415; 71045; 80048; 80053; 82947; 83690; 84484; 85025; 85027; 93005; 93010; 96361; 96365; 96366; 96375; 96376; 99285-25; C9113; G0378; J1170; J2405; J7030

== ENCOUNTER 2020-10-04 09:00 | Day surgery (SDC) | payer MEDICARE, OTHER ==
[~2020-10-04] VITALS: Ht 188 cm; Wt 115.2 kg
[~2020-10-04 09:00] MED LIST changes: +CODACE30; +COMBIVENT RESPIM4 G1; +Citalopram HBr40 MG; +FUROSEMIDE20 MG PO; +QUETIAPINE FUMA50 MG PO; +Ropinirole HCl2 MG PO
== END 2020-10-04 11:40 | disposition home or self-care (01) ==
LOC: ORSCSDS 09:00
PROVIDERS: Internal Medicine Gastroenterology
PROC: 0DBL8ZX Excision of Transverse Colon, Via Natural or Artificial Opening Endoscopic, Diagnostic (ICD-10-PCS; principal; 2020-10-04 10:30)
PROC: 0DB58ZX Excision of Esophagus, Via Natural or Artificial Opening Endoscopic, Diagnostic (ICD-10-PCS; principal; 2020-10-04 10:30)
PROC: 0DBK8ZX Excision of Ascending Colon, Via Natural or Artificial Opening Endoscopic, Diagnostic (ICD-10-PCS; principal; 2020-10-04 10:30)
PROC: 0DBP8ZX Excision of Rectum, Via Natural or Artificial Opening Endoscopic, Diagnostic (ICD-10-PCS; principal; 2020-10-04 10:30)
PROC: 0DBM8ZX Excision of Descending Colon, Via Natural or Artificial Opening Endoscopic, Diagnostic (ICD-10-PCS; principal; 2020-10-04 10:30)
PROC: 0DB68ZX Excision of Stomach, Via Natural or Artificial Opening Endoscopic, Diagnostic (ICD-10-PCS; principal; 2020-10-04 10:30)
PROC: 0DBH8ZX Excision of Cecum, Via Natural or Artificial Opening Endoscopic, Diagnostic (ICD-10-PCS; principal; 2020-10-04 10:30)
DX: R11.2 Nausea with vomiting, unspecified (principal); K22.70 Barrett's esophagus without dysplasia; K29.80 Duodenitis without bleeding; D12.0 Benign neoplasm of cecum; D12.2 Benign neoplasm of ascending colon; D12.3 Benign neoplasm of transverse colon; D12.4 Benign neoplasm of descending colon; D12.8 Benign neoplasm of rectum; K57.30 Diverticulosis of large intestine without perforation or abscess without bleeding; K64.8 Other hemorrhoids; A63.0 Anogenital (venereal) warts; R19.4 Change in bowel habit; R10.84 Generalized abdominal pain; I48.91 Unspecified atrial fibrillation; I42.6 Alcoholic cardiomyopathy; F41.8 Other specified anxiety disorders; I10 Essential (primary) hypertension; Z86.73 Personal history of transient ischemic attack (TIA), and cerebral infarction without residual deficits; J44.9 Chronic obstructive pulmonary disease, unspecified; F17.210 Nicotine dependence, cigarettes, uncomplicated; Z79.01 Long term (current) use of anticoagulants; Z79.899 Other long term (current) drug therapy
CPT/HCPCS: 88305; 88342; J2370; J2405; J2704; J7120

== ENCOUNTER → 2020-12-22 | Outpatient (CLI) | payer MEDICARE, OTHER | END | disposition home or self-care (01) | LOC: LAB 16:08 → LAB SHORT 16:08 | DX: R05 Cough (principal); T14.8XXA Other injury of unspecified body region, initial encounter; W54.0XXA Bitten by dog, initial encounter | CPT/HCPCS: 87015; 87116; 87206 ==

== ENCOUNTER 2022-04-09 04:29 | Emergency (ER) | payer MEDICARE, OTHER ==
[~2022-04-09] VITALS: Ht 193 cm; Wt 129.3 kg
[2022-04-09 05:56] LABS: BASOPHILS ABSOLUTE AUTO 0.06 K/mm3 (0.00-0.23); BASOPHILS PERCENT AUTO 1 % (0-2); EOSINOPHILS ABSOLUTE AUTO 0.29 K/mm3 (0.00-0.68); EOSINOPHILS PERCENT AUTO 3 % (0-6); Hematocrit 42.5 % (37.0-53.0); Hemoglobin 13.6 g/dL (13.5-17.5); IMMATURE GRAN ABSOLUTE AUTO 0.03 K/mm3 (0.00-0.10); IMMATURE GRAN PERCENT AUTO 0 % (0-1); LYMPHOCYTES ABSOLUTE AUTO 1.56 K/mm3 (0.84-5.20); LYMPHOCYTES PERCENT AUTO 15 % (21-46); MONOCYTES ABSOLUTE AUTO 0.89 K/mm3 (0.16-1.47); MONOCYTES PERCENT AUTO 9 % (4-13); Mean Corpuscular HGB 29.8 pg (26.0-34.0); Mean Corpuscular Volume 93 fL (80-100); NEUTROPHILS ABSOLUTE AUTO 7.62 K/mm3 (1.96-9.15); NEUTROPHILS PERCENT AUTO 73 % (41-73); Platelet Count 280 K/mm3 (150-400); RDW Coefficient Variation 14.4 % (11.7-14.2); RDW Standard Deviation 49.6 fL (35.1-46.3); Red Blood Cell Count 4.56 M/mm3 (4.30-5.90); White Blood Cell Count 10.45 K/mm3 (4.00-11.30)
[2022-04-09 06:01] LABS: International Normalized Ratio 1.02; Prothrombin Time Results 10.7 Sec (9.7-11.5)
[2022-04-09 06:14] LABS: Albumin, Blood 3.7 g/dL (3.4-5.0); Bilirubin, Total 0.5 mg/dL (0.1-1.0); Bun/Creatinine Ratio 25.2 (12.0-20.0); Calcium, Blood 9.2 mg/dL (8.5-10.1); Creatinine, Blood 1.03 mg/dL (0.60-1.20); Globulin, Blood 3.6 g/dL (2.2-4.0); Potassium, Blood 4.1 mmol/L (3.5-5.5); Total Protein, Blood 7.3 g/dL (6.4-8.2)
== END 2022-04-09 06:31 | disposition short-term general hospital (02) ==
LOC: ER 04:29
PROVIDERS: Student in an Organized Health Care Education/Training Program
DX: S05.31XA Ocular laceration without prolapse or loss of intraocular tissue, right eye, initial encounter (principal); R45.1 Restlessness and agitation; Z91.19 Patient's noncompliance with other medical treatment and regimen; J43.9 Emphysema, unspecified; I50.9 Heart failure, unspecified; I48.91 Unspecified atrial fibrillation; F41.9 Anxiety disorder, unspecified; Z87.891 Personal history of nicotine dependence; Z79.899 Other long term (current) drug therapy; Z79.01 Long term (current) use of anticoagulants; Z88.6 Allergy status to analgesic agent; Z88.5 Allergy status to narcotic agent; Z88.8 Allergy status to other drugs, medicaments and biological substances; W19.XXXA Unspecified fall, initial encounter; Y92.9 Unspecified place or not applicable
CPT/HCPCS: 36415; 70450; 70480; 72125; 80053; 85025; 85610; 85730; 86850; 86900; 86901; 90714; 96365; 96372; 96375; J0744

== ENCOUNTER 2022-10-22 14:02 | Day surgery (SDC) | payer MEDICARE, OTHER ==
[~2022-10-22] VITALS: Ht 193 cm; Wt 115.6 kg
[2022-10-22] MEDS ORDERED: CARV3.125 (15:14)
[2022-10-22] MEDS ORDERED: ROPI1 PO (15:15)
--- NOTE | 2022-10-22 15:19 | NUR ---
10/22/22 1519 Mary Jo Valentin CALL LIGHT WITHIN REACH. TETRACAIN IN THE LEFT EYE AT 1507 AND ROSIBEL AT 1510
== END 2022-10-22 16:39 | disposition home or self-care (01) ==
LOC: ORSCSDS 14:02
PROVIDERS: Ophthalmology
PROC: 08RK3JZ Replacement of Left Lens with Synthetic Substitute, Percutaneous Approach (ICD-10-PCS; principal; 2022-10-22 15:30)
DX: H25.12 Age-related nuclear cataract, left eye (principal); I48.91 Unspecified atrial fibrillation; G47.33 Obstructive sleep apnea (adult) (pediatric); F17.210 Nicotine dependence, cigarettes, uncomplicated; K21.9 Gastro-esophageal reflux disease without esophagitis; I25.10 Atherosclerotic heart disease of native coronary artery without angina pectoris; Z79.899 Other long term (current) drug therapy
CPT/HCPCS: J2001; J2250; J3010; J3301; J7040; V2632

== ENCOUNTER → 2023-06-26 | Outpatient (CLI) | payer MEDICARE, OTHER ==
[~2023-06-26] MED LIST changes: +CARV3.125; +ROPI1 PO
[2023-06-26 13:20] LABS: Albumin, Blood 3.5 g/dL (3.4-5.0); Albumin/Globulin Ratio 0.9 (0.8-1.8); Bilirubin, Total 0.4 mg/dL (0.1-1.0); Calcium, Blood 8.6 mg/dL (8.5-10.1); Creatinine, Blood 1.35 mg/dL (0.60-1.20); Globulin, Blood 3.8 g/dL (2.2-4.0); Magnesium, Blood 2.3 mg/dL (1.6-2.4); Potassium, Blood 3.7 mmol/L (3.5-5.5); Thyroid Stimulating Hormone 1.5 uIU/mL (0.360-4.800); Total Protein, Blood 7.3 g/dL (6.4-8.2)
== END ==
LOC: LAB 09:51 → LAB SHORT 09:51
PROVIDERS: Internal Medicine Cardiovascular Disease
DX: I48.11 Longstanding persistent atrial fibrillation (principal); I50.9 Heart failure, unspecified; R06.02 Shortness of breath; R60.9 Edema, unspecified
CPT/HCPCS: 36415; 80053; 83735; 83880; 84443

== ENCOUNTER → 2023-09-23 | Outpatient (CLI) | payer MEDICARE, OTHER | LOC: LAB 19:35 → LAB SHORT 19:35 | DX: K04.7 Periapical abscess without sinus (principal) | CPT/HCPCS: 87070; 87205 ==

== ENCOUNTER → 2023-11-06 | Outpatient (CLI) | payer MEDICARE, OTHER ==
[2023-11-06 13:55] LABS: Bun/Creatinine Ratio 22.4 (12.0-20.0); Calcium, Blood 9.3 mg/dL (8.5-10.1); Creatinine, Blood 1.16 mg/dL (0.60-1.20); Potassium, Blood 3.9 mmol/L (3.5-5.5)
== END ==
LOC: LAB SHORT 12:04 → LAB 12:04
PROVIDERS: Family Medicine
DX: I99.8 Other disorder of circulatory system (principal)
CPT/HCPCS: 80048

== ENCOUNTER → 2025-09-29 | Outpatient (CLI) | payer MEDICARE, OTHER ==
[2025-09-29 16:14] LABS: Anion Gap 4.0 mmol/L (3-11); Blood Urea Nitrogen 29.0 mg/dL (8-24); CO2, Blood 37.0 mmol/L (21-32); Calcium, Blood 9.7 mg/dL (8.5-10.1); Chloride, Blood 100.0 mmol/L (98-108); Creatinine, Blood 1.32 mg/dL (0.60-1.20); Glucose, Blood 110.0 mg/dL (70-99); Potassium, Blood 4.4 mmol/L (3.5-5.5); Sodium, Blood 137.0 mmol/L (136-145)
== END ==
LOC: LAB 12:30 → LAB SHORT 12:30
PROVIDERS: Family Medicine
DX: I50.9 Heart failure, unspecified (principal); I48.0 Paroxysmal atrial fibrillation
CPT/HCPCS: 80048